=== PATIENT | female | born 1940 | race Hispanic/Latino ===

== ENCOUNTER 2017-12-17 13:05 | Observation (INO) | payer MEDICARE, BC ==
--- NOTE | 2017-12-17 13:56 | ED PDOC ---
Arrival/HPI - General Chief Complaint: Syncope Time Seen by Provider: 12/17/17 13:19 Historian: Patient - History of Present Illness Narrative History of Present Illness (Text): 12/17/17 13:20 A 77 year old female, whose past medical history includes Atrial Fibrillation ( on Cardizem and Eliquis), presents to the emergency department complaining of dizziness. Patient reports that when she was walking this morning, she began experiencing dizziness, fell, and broke fall with left hand. Denies head trauma or LOC. Patient states visiting Urgent Care for complaint of dizziness and was diagnosed with a wrist fracture. She was placed in splint and instructed to come to ED. Patient reports symptoms have resolved. Denies any chest pain, shortness of breath, head trauma, headache. PMD: Dr. Mckoy 12/17/17 17:39 Past Medical History - Provider Review Nursing Documentation Reviewed: Yes - Reproductive Menopause: Yes - Cardiac Hx Cardiac Disorders: Yes (AFIB) Hx Hypertension: Yes - HEENT Hx Macular Degeneration: Yes - Hematological/Oncological Hx Blood Transfusions: No Hx Blood Transfusion Reaction: No - Musculoskeletal/Rheumatological Hx Falls: No - Psychiatric Hx Depression: No Hx Emotional Abuse: No Hx Physical Abuse: No Hx Substance Use: No - Anesthesia Hx Anesthesia Reactions: No Hx Malignant Hyperthermia: No - Suicidal Assessment Feels Threatened In Home Enviroment: No Family/Social History - Physician Review Nursing Documentation Reviewed: Yes Family/Social History: No Known Family HX Smoking Status: Never Smoked Hx Alcohol Use: No Hx Substance Use: No Allergies/Home Meds Allergies/Adverse Reactions: Allergies ciprofloxacin [From Cipro] Allergy (Verified 12/17/17 13:27) ITCHING Home Medications: Home Meds Medication Instructions Recorded Confirmed Diltiazem HCl [Cardizem Cd] 240 mg PO DAILY 09/15/12 12/17/17 Alprazolam [Xanax] 0.5 mg PO BID PRN 12/17/17 12/17/17 Apixaban [Eliquis] 5 mg PO BID 12/17/17 12/17/17 Aspirin [Aspirin EC] 325 mg PO DAILY 12/17/17 12/17/17 Simvastatin [Zocor] 40 mg PO HS 12/17/17 12/17/17 Review of Systems - Physician Review All systems were reviewed & negative as marked: Yes - Review of Systems Constitutional: absent: Other (no head trauma) Respiratory: absent: SOB, Cough, Sputum, Wheezing Cardiovascular: absent: Chest Pain, Palpitations, Edema, Calf Pain, DIAZ, Orthopnea, Syncope Gastrointestinal: absent: Abdominal Pain, Constipation, Diarrhea, Nausea, Vomiting Musculoskeletal: Other (wrist fracture s/p fall) Neurological: Dizziness (currently resolved; before experienced room-spinning- sensation dizziness causing patient to fall). absent: Headache, Speech Changes , Facial Droop, Other (no LOC) Psychiatric: absent: Anxiety, Depression Physical Exam Vital Signs Reviewed: Yes Vital Signs Temp Pulse Resp BP Pulse Ox 12/17/17 13:24 98.2 F 56 L 18 137/77 98 Temperature: Afebrile Blood Pressure: Normal Pulse: Regular Respiratory Rate: Normal Appearance: Positive for: Well-Appearing, Non-Toxic, Comfortable Pain Distress: None Mental Status: Positive for: Alert and Oriented X 3 Finger Stick Blood Glucose: 117 - Systems Exam Head: Present: Atraumatic, Normocephalic Pupils: Present: PERRL Extroacular Muscles: Present: EOMI Conjunctiva: Present: Normal Mouth: Present: Moist Mucous Membranes Neck: Present: Normal Range of Motion Respiratory/Chest: Present: Clear to Auscultation, Good Air Exchange. No: Respiratory Distress, Accessory Muscle Use Cardiovascular: Present: Regular Rate and Rhythm, Normal S1, S2. No: Murmurs Abdomen: Present: Normal Bowel Sounds. No: Tenderness, Distention, Peritoneal Signs Back: Present: Normal Inspection. No: CVA Tenderness Upper Extremity: Present: Normal Inspection. No: Cyanosis, Edema Lower Extremity: Present: Normal Inspection. No: Edema Neurological: Present: GCS=15, CN II-XII Intact, Speech Normal Skin: Present: Warm, Dry, Normal Color. No: Rashes Psychiatric: Present: Alert, Oriented x 3, Normal Insight, Normal Concentration Medical Decision Making ED Course and Treatment: 12/17/17 13:23 Impression: 77 year old female with wrist fracture s/p fall. No acute findings on physical examination. Denies headache or head trauma Plan: -- EKG -- Chest X-ray -- Labs -- Aspirin -- Urinalysis -- Reassess and disposition Progress Notes: 12/17/17 14:33 Cxray shows "No active disease." EKG shows sinus bradycardia at 56bpm with pacs , LVH and T wave inversions in V3-v6 with <1mm ST depressions in v4-v6. EKG from urgent care center shows NSR at 86bpm with similar t wave changes 12/17/17 14:35 Urgent care center xray shows radius fracture but need dedicated hand xray which was ordered 12/17/17 14:[address] Mckoy and prior ekg from 2010 shows similar t wave inversions and v4-v6 depressions 12/17/17 15:08 Comminuted intra-articular distal radial fracture with some impaction. Ulnar styloid process fracture. Hand negative for fracture. 12/17/2017 14:27 Chest X-ray IMPRESSION: No active disease. Dictator: Joey Leigh MD 14:59 Wrist X-Ray IMPRESSION: Cominuted intra'articular distal radial fracture with some imapction. Ulnar styloid process fracture. Dictator: Holden Sanchez MD 12/17/2017 15:01 Hand X-Ray IMPRESSION: No acute fracture of hand. Comminuted intra-articular distal radial fracture. Dictator: Holden Sanchez MD 12/17/17 15:08 BNP mildly elevated. Reports normal echo by Dr. Chopra last year. Will transfer to tele observation under Dr. Guy with Dr. Chopra and ortho on consult for afib with dizziness causing fall. 12/17/17 17:41 Dr. Montemayor at bedside and performed reduction - Lab Interpretations Lab Results: 12/17/17 13:30 12/17/17 13:30 Lab Results 12/17/17 13:57: Urine Color Yellow, Urine Appearance Clear, Urine pH 6.0, Ur Specific Steens <= 1.005, Urine Protein Negative, Urine Glucose (UA) Negative, Urine Ketones Negative, Urine Blood Negative, Urine Nitrate Negative, Urine Bilirubin Negative, Urine Urobilinogen 0.2, Ur Leukocyte Esterase Negative 12/17/17 13:30: Sodium 139, Potassium 4.4, Chloride 107, Carbon Dioxide 21, Anion Gap 16, BUN 16, Creatinine 1.0, Est GFR ( Amer) > 60, Est GFR (Non- Af Amer) 53, Random Glucose 112 H, Calcium 9.3, Phosphorus 3.9, Magnesium 2.1, Total Bilirubin 0.6, AST 26, ALT 24, Alkaline Phosphatase 62, Lactate Dehydrogenase 521, Total Creatine Kinase 70, Troponin I < 0.01, NT-Pro-B Natriuret Pep 1010 H, Total Protein 7.9, Albumin 4.1, Globulin 3.8, Albumin/ Globulin Ratio 1.1 12/17/17 13:30: PT 14.0 H, INR 1.22 H, APTT 33.8 12/17/17 13:30: WBC 8.2, RBC 4.62, Hgb 13.9, Hct 41.2, MCV 89.2, MCH 30.1, MCHC 33.7, RDW 13.2, Plt Count 231, MPV 9.4, Gran % 72.1 H, Lymph % (Auto) 19.3 L, Holmes % (Auto) 6.1 H, Eos % (Auto) 2.3, Baso % (Auto) 0.2, Gran # 5.88, Lymph # ( Auto) 1.6, Holmes # (Auto) 0.5, Eos # (Auto) 0.2, Baso # (Auto) 0.02 12/17/17 13:23: POC Glucose (mg/dL) 117 H I have reviewed the lab results: Yes - RAD Interpretation Radiology Orders: 12/17/17 13:23 CHEST PORTABLE [RAD] Stat 12/17/17 14:09 HAND LEFT 3 VIEWS ROUTINE [RAD] Stat WRIST, LEFT 3 VIEWS [RAD] Stat 12/17/17 17:32 WRIST, LEFT 3 VIEWS [RAD] Stat 12/17/17 17:33 WRIST, RIGHT 3 VIEWS [RAD] Stat - Medication Orders Current Medication Orders: Discontinued Medications Aspirin (Aspirin Chewable) 324 mg PO STAT STA Stop: 12/17/17 13:25 Last Admin: 12/17/17 13:33 Dose: Not Given Non-Admin Reason: Patient Refused - Scribe Statement The provider has reviewed the documentation as recorded by the Sandra Toscano Provider Scribe Attestation: All medical record entries made by the Scribe were at my direction and personally dictated by me. I have reviewed the chart and agree that the record accurately reflects my personal performance of the history, physical exam, medical decision making, and the department course for this patient. I have also personally directed, reviewed, and agree with the discharge instructions and disposition. Disposition/Present on Arrival - Present on Arrival Any Indicators Present on Arrival: No History of DVT/PE: No History of Uncontrolled Diabetes: No Urinary Catheter: No History of Decub. Ulcer: No History Surgical Site Infection Following: None - Disposition Have Diagnosis and Disposition been Completed?: Yes Diagnosis: Atrial fibrillation, Dizziness, Fracture of ulnar styloid, Radius fracture Disposition: HOSPITALIZED Disposition Time: 15:09 Patient Plan: Observation Patient Problems: Current Active Problems Problem Status Onset Atrial fibrillation Acute Dizziness Acute Fracture of ulnar styloid Acute Radius fracture Acute Condition: FAIR Referrals: Jerald Mckoy MD [Primary Care Provider] - Follow up with primary Forms: Moogi (Lao)
[2017-12-17 14:03] LABS: BASO # 0.02 K/mm3 (0.0-2.0); BASO % 0.2 % (0.0-3.0); EOS # 0.2 (0.0-0.7); EOS % 2.3 % (1.5-5.0); GRAN # 5.88 (1.4-6.5); GRAN % 72.1 % (50.0-68.0); HEMOGLOBIN 13.9 g/dL (12.0-16.0); LYMPH # 1.6 (1.2-3.4); LYMPH % 19.3 % (22.0-35.0); MEAN CELL VOLUME 89.2 fl (80.0-105.0); MEAN CORPUSCULAR HEMOGLOBIN 30.1 pg (25.0-35.0); MEAN CORPUSCULAR HGB CONC 33.7 g/dl (31.0-37.0); MEAN PLATELET VOLUME 9.4 fl (7.0-11.0); MONO # 0.5 (0.1-0.6); MONO % 6.1 % (1.0-6.0); RBC 4.62 10^6/uL (3.5-6.1); RED CELL DISTRIBUTION WIDTH 13.2 % (11.5-14.5); WHITE BLOOD COUNT 8.2 10^3/ul (4.5-11.0)
[2017-12-17 14:03] LABS: URINE BILIRUBIN NEGATIVE (NEGATIVE); URINE BLOOD NEGATIVE (NEGATIVE); URINE GLUCOSE (UA) NEGATIVE (NEGATIVE); URINE LEUKOCYTE ESTERASE NEGATIVE Leu/uL (NEGATIVE); URINE NITRATE NEGATIVE (NEGATIVE); URINE PROTEIN NEGATIVE mg/dL (<30 mg/dL); URINE UROBILINOGEN 0.2 E.U./dL (<1 E.U./dL)
[2017-12-17 14:04] LABS: URINE APPEARANCE CLEAR (CLEAR); URINE COLOR YELLOW (YELLOW)
[2017-12-17 14:13] LABS: INR 1.22 (0.93-1.08)
[2017-12-17 14:14] LABS: PARTIAL THROMBOPLASTIN TIME 33.8 Seconds (25.1-36.5)
[2017-12-17 14:20] LABS: ALB/GLOB RATIO 1.1 (1.1-1.8); ALBUMIN 4.1 g/dL (3.0-4.8); ALT/SGPT 24 U/L (7-56); AST/SGOT 26 U/L (14-36); BLOOD UREA NITROGEN 16 mg/dL (7-21); CALCIUM 9.3 mg/dL (8.4-10.5); GFR AFRICAN-AMERICAN > 60; GFR NON-AFRICAN AMERICAN 53; MAGNESIUM 2.1 mg/dL (1.7-2.2)
[2017-12-17 14:23] LABS: B-TYPE NATRIURETIC PEPTIDE 1010 pg/mL (0-450); TROPONIN I < 0.01 ng/mL
--- NOTE | 2017-12-17 14:29 | RAD ---
HISTORY: chest pain COMPARISON: 09/15/2012 FINDINGS: LUNGS: No active pulmonary disease. PLEURA: No significant pleural effusion identified, no pneumothorax apparent. CARDIOVASCULAR: Mild cardiomegaly OSSEOUS STRUCTURES: No significant abnormalities. VISUALIZED UPPER ABDOMEN: Normal. OTHER FINDINGS: None. IMPRESSION: No active disease.
--- NOTE | 2017-12-17 15:01 | RAD ---
PROCEDURE: Left Wrist Radiographs. HISTORY: L wrist pain, radius fx on outside cd COMPARISON: None. FINDINGS: BONES: Comminuted displaced intra-articular fracture of distal radius. There is dorsal and ventral displacement of distal fragments. There is some impaction. Minimally displaced ulnar styloid process fracture noted. No other fracture is identified. JOINTS: Intra-articular fracture at radiocarpal articulation. Normal carpal alignment maintained. SOFT TISSUES: Normal. OTHER FINDINGS: None. IMPRESSION: Comminuted intra-articular distal radial fracture with some impaction. Ulnar styloid process fracture.
--- NOTE | 2017-12-17 15:03 | RAD ---
PROCEDURE: Left Hand Radiographs. HISTORY: hand pain after fall COMPARISON: None. FINDINGS: BONES: No acute fracture. Comminuted intra-articular distal radial fracture. Please see report of wrist x-ray. JOINTS: Osteoarthritis DIP 3, 4 and 5 and PIP 4. SOFT TISSUES: Normal. OTHER FINDINGS: None. IMPRESSION: No acute fracture of hand. Comminuted intra-articular distal radial fracture
[2017-12-17] MEDS ORDERED: Lidocaine 1% Inj (20ml) ONE (16:34)
[2017-12-17] MEDS ORDERED: Bupivacaine 0.5% Inj(30mL) ONE (16:34)
--- NOTE | 2017-12-17 18:00 | CARD ---
APPROVED REPORT EKG Measurement Heart [id number] <Conclusion> Sinus bradycardia with premature atrial complexes Minimal voltage criteria for LVH, may be normal variant ST & T wave abnormality, consider lateral ischemia Abnormal ECG
[2017-12-18 00:47] VITALS: BMI 33.0
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
[2017-12-18 06:32] VITALS: BP 150/73; RESP 20; TEMP 98.1; O2SAT 95
--- NOTE | 2017-12-18 09:04 | RAD ---
PROCEDURE: Right Wrist Radiographs. HISTORY: post reduction COMPARISON: None. FINDINGS: BONES: Normal. No fracture. JOINTS: Normal. No dislocation. SOFT TISSUES: Normal. OTHER FINDINGS: None. IMPRESSION: No evidence of acute pathology at the right wrist.
--- NOTE | 2017-12-18 09:05 | RAD ---
PROCEDURE: Left Wrist Radiographs. HISTORY: s/p reduction COMPARISON: Comparison is made with the previous same-day exam. FINDINGS: BONES: Again seen is displaced mildly angulated fracture at the distal left radius extending to the articular surface of the radiocarpal joint. The left wrist is seen in cast JOINTS: No evidence of dislocation. SOFT TISSUES: Soft tissue swelling is again noted. OTHER FINDINGS: None. IMPRESSION: Left wrist seen in cast. Distal left radius fracture.
[2017-12-18] MEDS: Aspirin 325 mg EC Tablets PO SCH ×2 (09:16→09:21)
[2017-12-18 09:21] VITALS: PULSE 64
[2017-12-18] MEDS ORDERED: diltiaZEM 240 mg/24 Hours CD Cap PO SCH (10:00)
--- NOTE | 2017-12-18 13:28 | PN ---
DATE: 12/18/2017 The patient is a 76-year-old female with left distal radius fracture, which underwent a closed reduction yesterday, which was 12/17/2017 and she has much improved position on the x-ray. The cast is irritating her left arm and touching the adipose tissue of her left arm, so we trimmed the cast so that it does not irritate the skin that much and she can move it a little better and feels better. It was deemed that the cast is holding the fracture in good position, we do not have to change it until in about 10 days, we will put her on a shoulder arm cast. Hopefully, she will go home soon and I will follow her in the office. Otherwise, her fracture is in improved position of the left distal ulnar radius nondominant side. Joey Sheets DO MTDJud
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
== END 2017-12-18 11:50 | disposition home or self-care (01) ==
LOC: ED 13:05 → ERH 16:01 → 3RSO 22:07
PROVIDERS: ADMIT Internal Medicine Nephrology; ATTEND Internal Medicine Nephrology
DX: S52.572A Other intraarticular fracture of lower end of left radius, initial encounter for closed fracture (principal); S52.612A Displaced fracture of left ulna styloid process, initial encounter for closed fracture; W01.0XXA Fall on same level from slipping, tripping and stumbling without subsequent striking against object, initial encounter; E78.5 Hyperlipidemia, unspecified; I10 Essential (primary) hypertension; I48.0 Paroxysmal atrial fibrillation; K21.9 Gastro-esophageal reflux disease without esophagitis; M81.0 Age-related osteoporosis without current pathological fracture; Z79.01 Long term (current) use of anticoagulants; Y92.008 Other place in unspecified non-institutional (private) residence as the place of occurrence of the external cause
CPT/HCPCS: 25605; 71045; 73110; 73130; 80053; 81003; 82550; 82948; 83615; 83735; 83880; 84100; 84484; 85025; 85610; 85730; 93005; 99285; G0378